=== PATIENT | female | born 1980 | race Caucasian/White ===

== ENCOUNTER 2022-09-03 10:05 | Emergency (ER) | payer OTHER, SELFPAY ==
[2022-09-03 10:30] VITALS: BP 113/65; PULSE 56; RESP 16; TEMP 36.3; O2SAT 100
--- NOTE | 2022-09-03 10:30 | ED.GENADULT ---
HPI - General Adult General Chief complaint: Chest Pain Stated complaint: sob,rt shoulder and upper back pain Time Seen by Provider: 09/03/22 10:30 Source: patient, RN notes reviewed and old records reviewed Mode of arrival: ambulatory Limitations: no limitations History of Present Illness HPI narrative: 42-year-old female presents to the [facility] with complaints of shortness of breath, right shoulder pain/ back pain that radiates into her right chest area reports that she is 33 weeks , OB Rhoda history of pericarditis and reports that it feels just like when she had pericarditis 5 years ago wrist pain, shortness of breath has been going on since Wednesday. Called OB and rheumatology and has an appointment with rheumatology on Wednesday states the shortness breath has been getting worse, no distress on exam. Vitals are stable Onset (ago): day(s) (6) Review of Systems Review of Systems: All systems reviewed & are unremarkable except as noted in HPI and below Constitutional: Constitutional: Reports no additional constitutional complaints Eyes: Eyes: Reports no additional eye complaints ENT: Reports system reviewed and no additional complaints, except as documented Cardiovascular: Cardiovascular: Reports as per HPI, Reports chest pain ( right upper back radiating into the right chest) and Denies dyspnea Respiratory: Respiratory: Reports as per HPI, Denies chest congestion, Denies cough, Reports pain on inspiration and Reports dyspnea Gastrointestinal: Gastrointestinal: Reports no additional gastrointestinal complaints, Denies abdominal pain, Denies nausea and Denies vomiting Musculoskeletal: Musculoskeletal: Reports no additional musculoskeletal complaints Integumentary/Breasts: Skin/Breast: Reports system reviewed and no additional complaints, except as docu Neurologic: Reports system reviewed and no additional complaints, except as documented Psychiatric: Psychiatric: Reports no additional psychiatric complaints Allergic/Immunologic: Allergic/Immunologic: Reports no additional allergic/immunologic complaints PMFSH Past Medical History Medical History (Updated 09/03/22 @ 10:51 by Sue Joseph APRN) Pericarditis history of 2018 Comments At the time of my signature, I reviewed and agree with the nursing past medical, surgical, social, and family history. There is no relevant family history pertinent to the patient complaint. Exam Const: General: cooperative, healthy appearing, comfortable, no acute distress, well developed, alert and well nourished Nutritional Appearance: well nourished Orientation/consciousness: patient oriented x3 Limitations: no limitations HENMT: Head: normal to inspection Ears: hearing grossly normal bilaterally and external ears normal Face/Nose/Sinus: Normal external nose present, Normal nares present, Normal nasal mucous membranes and turbinates present and normal facial exam Face and sinus: normal facial exam Mouth: Yes Normal oral and palatal mucosa present, Yes lip normal and Yes moist mucous membranes Eyes: General: appearance normal, both eyes and all related structures Alignment and Position: alignment normal Periorbital: periorbital findings normal Conjunctivae: conjunctivae normal Pupils: Equal, round and reactive pupils present EOM: EOMs intact bilaterally Neck: Neck: normal visual inspection, full ROM, no lymphadenopathy and no meningeal signs Chest: Chest palpation & inspection: normal inspection of the chest Resp: Effort & Inspection: normal respiratory effort and able to speak in complete sentences Auscultation: clear to auscultation bilaterally, no crackles, no rales, no rhonchi and no wheezes Cardio: Rate: regular rate Rhythm: regular rhythm Back/Spine/Pelvis: Cervical Spine: cervical ROM normal Thoracic/Lumbar Spine: No thoracic spinal tenderness Skin: General skin exam: normal color and no rashes or lesions noted Lesions: no lesions Rashes: no ra
== END 2022-09-03 10:46 | disposition short-term general hospital (02) ==
PROVIDERS: Emergency Provider Nurse Practitioner; PCP Internal Medicine
DX: O99.891 Other specified diseases and conditions complicating pregnancy (principal); Z3A.33 33 weeks gestation of pregnancy; R06.00 Dyspnea, unspecified; M54.6 Pain in thoracic spine
CPT/HCPCS: 99212; G0463

== ENCOUNTER 2022-09-03 11:01 | Emergency (ER) | payer OTHER, SELFPAY ==
--- NOTE | 2022-09-03 11:04 | ECG_ITS ---
Measurements Intervals [place] Rate: 57 P: 32 WV: 147 QRS: -11 QRSD: 86 T: 22 QT: 412 QTc: 404 Interpretive Statements SINUS BRADYCARDIA LOW QRS VOLTAGE IN PRECORDIAL LEADS [QRS DEFLECTION < 1.0 mV IN CHEST LEADS] POSSIBLE RIGHT VENTRICULAR CONDUCTION DELAY [RSR (QR) IN V1/V2] MINIMAL VOLTAGE CRITERIA FOR LVH, CONSIDER NORMAL VARIANT [MEETS CRITERIA IN ONE OF: R(aVL), S(V1), R(V5), R(V5/V6)+S(V1)] NO PREVIOUS ECG AVAILABLE FOR COMPARISON Electronically Signed On 09-03-2022 14:20:52 CDT by Ciara Can M.D.
[2022-09-03 11:08] VITALS: BP 123/67; PULSE 65; RESP 17; TEMP 36.4; O2SAT 100
[2022-09-03 11:24] LABS: Basophils Percent Auto 0.3 % (0.2-1.2); Eosinophils Percent Auto 0.6 % (0-4.4); Hematocrit 35.2 % (37.0-47.0); Hemoglobin 11.5 g/dL (12.0-15.0); Immature Granulocyte Absolute 0.03 K/mm3 (0.00-0.031); Immature Granulocyte Percent A 0.4 % (0-0.5); Lymphocytes Absolute Auto 1.13 K/mm3 (0.9-3.2); Lymphocytes Percent Auto 15.5 % (18.3-44.2); Mean Corpuscular HGB Conc 32.7 g/dl (32-36); Mean Corpuscular Hemoglobin 28.3 pg (26-34); Mean Corpuscular Volume 86.7 fl (80-100); Mean Platelet Volume 10.6 fl (7.4-10.4); Monocytes Absolute Auto 0.3 K/mm3 (0.1-0.6); Monocytes Percent Auto 3.7 % (2.6-8.5); Neutrophils Absolute Auto 5.8 K/mm3 (1.3-6.7); Neutrophils Percent Auto 79.5 % (45.5-73.1); Platelet Count Result 193 k/mm3 (150-375); Red Blood Count 4.06 M/mm3 (4.2-5.4); Red Cell Distribution Width 15.5 % (11.5-14.5); White Blood Count 7.3 K/mm3 (4.5-10.0)
[2022-09-03 11:35] LABS: Alanine Aminotransferase 13 U/L (6-35); Albumin Level 3.7 g/dL (3.5-5.1); Alkaline Phosphatase 147 U/L (38-126); Anion Gap 8 mmol/L (8-16); Aspartate Amino Transferase 18 U/L (14-36); Bilirubin,Total 0.6 mg/dL (0.2-1.3); Blood Urea Nitrogen 6 mg/dL (7-17); Calcium 8.5 mg/dL (8.4-10.2); Carbon Dioxide 23 mmol/L (22-30); Chloride 104 mmol/L (98-107); Estimated CRCL calculation 131 ml/min; Estimated Glomerular Filt Rate > 60; Glucose 85 mg/dL (65-110); Lipase 33 U/L (23-300); Potassium 3.8 mmol/L (3.4-5.0); Sodium 135 mmol/L (137-145)
[2022-09-03 11:42] LABS: INR 1.1; Partial Thromboplastin Time 25.7 SECONDS (22.3-36.8); Prothrombin Time 13.4 Seconds (11.1-14.7)
[2022-09-03 11:46] LABS: Troponin I < 0.012 ng/mL (0.000-0.034)
[2022-09-03 14:55] LABS: Troponin I < 0.012 ng/mL (0.000-0.034)
[2022-09-03 16:43] VITALS: BP 121/73; PULSE 60; RESP 18; O2SAT 100
--- NOTE | 2022-09-03 17:00 | ED.CHESTPAIN ---
HPI - Chest Pain General Chief Complaint: Chest Pain Stated Complaint: chest pain, 33wk Time Seen by Provider: 09/03/22 16:19 History of Present Illness HPI narrative: This is a 42-year-old female, 33 weeks , with past medical history of pericarditis, previously managed by rheumatology at [facility], who presents emergency department complaining of sharp-like chest pain for the past 5 days. It is rated 5/10, worse with lying flat or deep breathing beginning in the back and radiating forward. She states this is very similar to her previous pericarditis symptoms with her last flare 5 years ago. She states she is not currently taking medications for this. Related Data Allergies Allergy/AdvReac Type Severity Reaction Status Date / Time azithromycin AdvReac Nausea and Verified 09/03/22 17:13 [From Zithromax Z-Jose Eduardo] Vomiting Review of Systems Review of Systems: CONSTITUTIONAL: Denies fever, chills, or sweats. CARDIOVASCULAR: Sharp chest pain denies palpitations, or edema. RESPIRATORY: Denies cough or dyspnea. GASTROINTESTINAL: Denies abdominal pain, nausea, vomiting, or diarrhea. GENITOURINARY: Denies dysuria or hematuria. SKIN: Denies rash or itching. MUSCULOSKELETAL: Denies back pain, joint pain, or myalgia. NEUROLOGIC: Denies headache, numbness, dizziness, or weakness. PSYCHIATRIC: Denies anxiety or depression. PMFSH Past Medical History Medical History Pericarditis history of 2018 Exam Narrative: GENERAL: Well-appearing, well-nourished, and in no acute distress. HEAD: Normocephalic, atraumatic. EYES: PERRLA and EOMI. ENT: Nares clear, no rhinorrhea or epistaxis. Mucous membranes moist. Oropharynx without tonsillar hypertrophy exudate or other lesions. NECK: Supple. No adenopathy or masses. No carotid bruits or JVD CHEST: Clear to auscultation. No respiratory distress. No wheezes rales or rhonchi HEART: Regular rate and rhythm. Pericardial friction rub, no murmurs or gallops. Normal peripheral pulses. ABDOMEN: Soft, gravid uterus, nontender, nondistended, normal active bowel sounds. EXTREMITIES: Normal range of motion. No edema. SKIN: Warm, dry, no rash. NEURO: No focal deficits. Alert and oriented x3. PSYCH: Normal mood and affect. Course Course Emergency Course: 16:50 - Bedside pericardial long axis view performed by me is not concerning for pericardial fluid or tamponade. Bedside ultrasound of the uterus demonstrates a glover intrauterine with heart rate approximately 130. 17:35 - ESR elevated to 70. Troponins negative x3. EKG not concerning for STEMI. CBC demonstrates mild anemia with Hgb of 11.5 (baseline unknown) but is otherwise normal. Chemistries demonstrate mild hyponatremia at 135 but is otherwise normal. On reevaluation, the patient states her pain has minimally improved. 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 Will discharge with Tylenol. Discussed return and emergency precautions including signs/symptoms of ACS and respiratory distress. The patient voiced understanding and is comfortable with the plan. All questions answered to her satisfaction. Vital Signs Vital signs: Vital Signs Temperature 97.6 F 09/03/22 11:08 Pulse Rate 65 09/03/22 11:08 Respiratory Rate 17 09/03/22 11:08 Blood Pressure 123/67 09/03/22 11:08 Pulse Oximetry 100 09/03/22 11:08 Oxygen Delivery Room Air 09/03/22 11:08 Temperature 97.6 F 09/03/22 11:08 Pulse Rate 62 09/03/22 18:17 Respiratory Rate 20 09/03/22 18:17 Blood Pressure 114/71 09/03/22 18:17 Pulse Oximetry 100 09/03/22 18:17 Oxygen Delivery Room Air 09/03/22 11:08 MDM - Chest Pain MDM Narrative Medical decision making narrative: Plan: Labs, EKG, pain control, bedside ultrasound, reassess Differential Diagnosis Differential diagnosis: Likely costochondritis, chest
[2022-09-03 17:14] VITALS: PULSE 56
[2022-09-03] MEDS: ACETAMINOPHEN 500 MG TABLET 1000 MG PO (17:14)
[2022-09-03 17:27] LABS: Erythrocyte Sedimentation Rate 70 mm/hr (0-20)
[2022-09-03 17:40] LABS: Troponin I < 0.012 ng/mL (0.000-0.034)
[2022-09-03 18:17] VITALS: BP 114/71; PULSE 62; RESP 20; O2SAT 100
== END 2022-09-03 18:18 | disposition home or self-care (01) ==
PROVIDERS: Emergency Medicine; Emergency Provider Preventive Medicine Aerospace Medicine; PCP Internal Medicine
DX: O99.891 Other specified diseases and conditions complicating pregnancy (principal); R07.9 Chest pain, unspecified; I31.9 Disease of pericardium, unspecified; Z3A.33 33 weeks gestation of pregnancy
CPT/HCPCS: 36415; 80053; 83690; 84484; 85025; 85610; 85652; 85730; 93005; 99284; A9270

== ENCOUNTER 2022-10-02 06:58 | Outpatient (CLI) | payer OTHER, SELFPAY ==
[2022-10-02] VITALS (14 sets, daily range): BP systolic 129–138; BP diastolic 77–89; PULSE 44–78; O2SAT 84–100
[2022-10-02] MEDS: TERBUTALINE SULFATE 1 MG/ML VIAL 0.25 MG SUB-Q (08:50)
--- NOTE | 2022-10-02 09:16 | WPDOBADMIT ---
Obstetrics - Admit Note Admission Note: record reviewed. Additions to the history and/or subsequent changes in the physical findings follow. 42 y/o G1 at 37 weeks with breech presentation here for ECV. AVSS NST reactive TOCO: no contractions ABD soft, nontender, gravid EXT nontender Ultrasound exam performed by me showed glover IUP in cecilia breech presentation with back along maternal right. Fundal placenta. Adequate AFV. Procedure: Informed consent was obtained. She received terbutaline 0.25 mg SC x 1. ECV was attempted under ultrasound guidance. I attempted to elevate the breech out of the maternal pelvis and effect a forward (clockwise) somersault. This was not successful, so we tried a reverse somersault. Again, this was unsuccessful. Two more attempts were made, taking care to ensure the FHR was normal throughout. External cephalic version was not successful. The patient tolerated the procedure well. NST was continued after procedure and was Category I. We reviewed instructions and precautions, and she will follow up next week in the office as scheduled. (MELISSA Rh pos.)
== END 2022-10-02 09:45 | disposition home or self-care (01) ==
LOC: ANHOBOP 07:03 → ANHOBPP 07:06
PROVIDERS: PCP Internal Medicine; Visit Provider Obstetrics & Gynecology
DX: O32.1XX0 Maternal care for breech presentation, not applicable or unspecified (principal); Z3A.00 Weeks of gestation of pregnancy not specified
CPT/HCPCS: 59412; 96372; 99199; J3105

== ENCOUNTER 2022-10-13 07:34 | Outpatient (CLI) | payer OTHER, SELFPAY ==
[2022-10-13 08:29] LABS: Hematocrit 38.1 % (37.0-47.0); Hemoglobin 12.5 g/dL (12.0-15.0); Mean Corpuscular HGB Conc 32.8 g/dl (32-36); Mean Corpuscular Hemoglobin 28.2 pg (26-34); Mean Platelet Volume 11.8 fl (7.4-10.4); Platelet Count Result 234 k/mm3 (150-375); Red Blood Count 4.43 M/mm3 (4.2-5.4); Red Cell Distribution Width 15.6 % (11.5-14.5); White Blood Count 5.5 K/mm3 (4.5-10.0)
[2022-10-13 12:12] LABS: Rapid Plasma Reagin Non-Reactive (NonReactive)
== END 2022-10-13 07:35 | disposition home or self-care (01) ==
LOC: ANHLAB 07:35
PROVIDERS: PCP Internal Medicine; Visit Provider Obstetrics & Gynecology
DX: Z34.93 Encounter for supervision of normal pregnancy, unspecified, third trimester (principal); Z3A.00 Weeks of gestation of pregnancy not specified
CPT/HCPCS: 36415; 85027; 86592; 86850; 86900; 86901

== ENCOUNTER 2022-10-14 09:45 | Inpatient (IN) | payer OTHER, SELFPAY ==
[2022-10-14] VITALS (46 sets, daily range): BP systolic 119–157; BP diastolic 62–136; PULSE 58–190; RESP 11–18; TEMP 35.9–36.8; O2SAT 100; BMI 33.7
--- NOTE | 2022-10-14 10:24 | LDADM ---
This patient, Richelle Hayes, was admitted to OB Post [facility] on 10/14/22 at 09:45. Plans for section , pain management and were discussed with patient. Patient/family oriented to hospital policies and general routines including ID bracelet, bed and alarms, visiting hours, pain management, procedures, bathroom and other care routines, personal items, smoking policy, room service/diet and guest tray routines, infant security routines, and visiting hours. Patient/Family are encouraged to report perceived risks to care and to ask questions if they do not understand what they are told or what they should do. See OBIX for further documentation.
[2022-10-14] MEDS: LACTATED RINGERS 1,000 ML 125 ML IV CONT ×2 (11:28→12:15)
--- NOTE | 2022-10-14 11:40 | WPDANESEPPF ---
Anes - Initial Pre Proc Eval Procedure: Operation Date: 10/14/22 12:00 Proposed Procedures p Primary Section - Marco A Molina MD Date/Time: 10/14/22 11:40 Surgeon: Marco A Molina MD Pre Op Diagnosis: c/s Patient Data Age: 42 Gender: F Height: 1.63 m Weight: 89 kg Last Vital Signs Pulse 61 10/14/22 11:16 BP 148/91 H 10/14/22 11:16 O2 Del Method Room Air 10/14/22 10:21 Allergies Allergy/AdvReac Type Severity Reaction Status Date / Time azithromycin AdvReac Diarrhea Verified 09/19/22 14:31 [From Zithromax Z-Jose Eduardo] Home Medications Medication Instructions Recorded Confirmed Type famotidine 20 mg tablet (Pepcid) 20 mg PO DAILY 10/02/22 10/14/22 History fluoxetine 40 mg capsule 40 mg PO DAILY 10/02/22 10/14/22 History prenat.vits,edwin,[id number] 1 tablet PO DAILY 10/02/22 10/14/22 History Patient hx anesthesia problems: none Family hx anesthesia problems: none Results Review: All pre-operative results and documents have been reviewed as part of the pre-operative evaluation. [facility] Past Medical History Medical History Pericarditis history of 2018 Family History Family History (Updated 09/19/22 @ 14:34 by Indio Smalls RN) Mother Progressive supranuclear palsy Hypertension Pre-diabetes Father Hypertension Sibling Cerebral palsy Grandparent Diabetes mellitus Social History Social History Smoking status: Former smoker Smoking end date: 05/31/09 Substance use: never Lack of Transportation: No Lack of Food: Never True Current Housing: I Have Housing Concerned About Future Housing: No Difficulty Paying Gas/Electric Bills: No Difficulty Paying for Meds: No Currently Unemployed: No Education: Master's Degree or Higher Difficulty w/ Childcare or Family Care: No Spiritual care concerns: No Anes - Eval Final PreProcedure Day of Procedure 10/14/22 11:40 Patient weight: obese Heart: regular rate and rhythm Lungs: clear to auscultation and normal air movement Airway: Mallampati scale class II Neurological: alert and oriented Last oral intake: >/= 8 hours ASA classification: II Emergent: no Anesthetic plan: proceed Anesthesia type and monitoring: regional spinal Results Review: All pre-operative results and documents have been reviewed as part of the pre-operative evaluation. Informed Consent: The patient's anesthetic plan and its attendant risks and benefits were discussed with the patient/family/POA. Questions were solicited and answers provided to the satisfaction of the patient/family/POA.
--- NOTE | 2022-10-14 11:52 | PM.IMHP ---
H&P: HPI History of Present Illness Date/Time: 10/14/22 11:52 Chief Complaint: Here for c section Narrative: 42 y/o G1 at 39 2/7 weeks with breech presentation here for primary . GBS neg. otherwise unremarkable. Review of Systems Review of Systems: All systems reviewed & are unremarkable except as noted in HPI and below PMFSH Past Medical History Medical History Anxiety Pericarditis history of 2018 Family History Family History Mother Progressive supranuclear palsy Hypertension Pre-diabetes Father Hypertension Sibling Cerebral palsy Grandparent Diabetes mellitus Social History Social History Smoking status: Former smoker Smoking end date: 05/31/09 Substance use: never Lack of Transportation: No Lack of Food: Never True Current Housing: I Have Housing Concerned About Future Housing: No Difficulty Paying Gas/Electric Bills: No Difficulty Paying for Meds: No Currently Unemployed: No Education: Master's Degree or Higher Difficulty w/ Childcare or Family Care: No Spiritual care concerns: No Meds Home Medications and Allergies Home Medications Medication Instructions Recorded Confirmed Type famotidine 20 mg tablet (Pepcid) 20 mg PO DAILY 10/02/22 10/14/22 History fluoxetine 40 mg capsule 40 mg PO DAILY 10/02/22 10/14/22 History prenat.vits,edwin,[id number] 1 tablet PO DAILY 10/02/22 10/14/22 History Allergies Allergy/AdvReac Type Severity Reaction Status Date / Time azithromycin AdvReac Diarrhea Verified 09/19/22 14:31 [From Zithromax Z-Jose Eduardo] Vital Signs Vital Signs - 24 hr 10/14/22 10:19 10/14/22 10:31 10/14/22 10:46 Pulse Rate 67 62 65 Blood Pressure 128/91 H 139/88 140/83 Oxygen Delivery 10/14/22 11:00 10/14/22 11:16 10/14/22 10:21 Pulse Rate 66 61 Blood Pressure 143/88 H 148/91 H Oxygen Delivery Room Air 10/14/22 10:20 Pulse Rate 67 Blood Pressure 128/91 H Oxygen Delivery Exam Const: Orientation/consciousness: patient oriented x3 Other: Well-developed, well-nourished female in no acute distress. Neck: Thyroid: thyroid normal Lymphatic: no lymphadenopathy noted (in neck, axilla or inguinal nodes) Resp: Effort & Inspection: normal respiratory effort Auscultation: clear to auscultation bilaterally Cardio: Rate: regular rate Rhythm: regular rhythm Heart sounds: S1 normal heart sound present and S2 normal heart sound present GI: Other: ABD: Soft, nontender, nondistended, gravid. NST reactive. TOCO: no contractions. No guarding or rebound tenderness. No hepatosplenomegaly. Bedsides ultrasound exam by me today confirms persistent breech presentation. : General: Yes no CVA tenderness Other: Deferred. Back/Spine/Pelvis: Back: no CVA tenderness Skin: General skin exam: normal color and no rashes or lesions noted Neuro: General: patient oriented x3 Extrem: Other: Extremities: nontender with no edema Psych: Mental Status: mental status grossly normal Affect: normal affect Assessment and Plan Assessment and plan (1) Term : Code(s): Z34.90 - Encounter for supervision of normal , unspecified, unspecified trimester Status: Acute Assessment and Plan: A: IUP at 39 2/7 weeks with persistent breech presentation. P: Offered primary low transverse delivery. She understands risks of surgery to include risks of anesthesia, risks of pain, infection, bleeding, blood products, thromboembolic phenomena and damage to adjacent structures such as bowel, bladder, ureters, blood vessels and nerves. She understands all these risks and elects to proceed with surgery. (2) Breech presentation: Code(s): O32.1XX0 - Maternal care for breech presentation, not applicabl
--- NOTE | 2022-10-14 11:57 | WPDHPUPDATE1 ---
History and Physical Update Update Date/Time: 10/14/22 11:57 History and Physical has been reviewed, including an updated exam of the patient. There are NO changes in the patient's condition. Risks, benefits, and alternatives have been discussed and questions answered. Patient agrees to proceed with procedure.
[2022-10-14] MEDS: ceFAZolin 2 GM/D5W 50 ML 2 GM/50 ML BAG IVPB (12:18)
--- NOTE | 2022-10-14 13:09 | PM.OBPRVD ---
OB - Delivery Note Procedure Delivery date: 10/14/22 Procedure: Procedures Operation Date: 10/14/22 12:00 <No data on this case meets the specified criteria> Primary low transverse delivery Events: Breech Presentation Delivery monitor: External FHT and External Uterine Route of delivery: Specimen: Yes (cord blood) Quantitative Blood Loss (ml): 275 Anesthesia type: Spinal Disposition: PACU Complications: None Narrative: The patient was taken to the operating room where she was prepared and draped in the usual sterile fashion in dorsal supine position with a leftward tilt. She received cefazolin preoperatively. Spinal anesthesia was found to be adequate. A Pfannenstiel skin incision was made and carried through to the underlying layer of the fascia. The fascia was incised in the midline and the incision was extended laterally. The fascia was dissected free of the underlying rectus muscles. The rectus muscles were in the midline. The peritoneum was identified, tented up and entered sharply. The peritoneal incision was extended superiorly and inferiorly with good visualization of the bladder. The bladder blade was placed. The vesicouterine peritoneum was identified, tented up and entered sharply. The incision was extended laterally and the bladder flap was developed. The bladder blade was replaced. The uterus was then incised sharply in a transverse fashion along the lower uterine segment. The incision was extended laterally. The 's breech was delivered to the level of the scapulae. The arms were swept across the chest and delivered. The head was gently flexed and easily delivered. The loose nuchal cord was reduced. The nose and mouth were bulb suctioned. After a delay, the cord was clamped and cut. The infant was handed off the field. Cord blood was collected. The placenta was removed manually and was passed off the field. The uterus was exteriorized and cleared of all clots and debris. The uterine incision was reapproximated using 0 Monocryl in a running, locked fashion. Excellent hemostasis resulted as did excellent reapproximation of the normal anatomy. The uterus was returned the abdomen. The pelvis was irrigated copiously with warmed normal saline. Rigorous hemostasis was assured. The fascial layer was reapproximated using 0 Vicryl in a running fashion. The skin was closed with a running, subcuticular stitch of 4 0 Vicryl. Dermaflex was applied externally. Sponge, lap, needle and instrument counts were correct. The patient was taken to the recovery room in stable condition. The went to the nursery in stable condition. I was present and scrubbed the entire procedure. Baby Date of : 10/14/22 Time of : 12:44 Weeks of gestation at delivery: 39 gender: Female Weight (pounds): 6 Weight (ounces): 3 presentation: cecilia breech Placenta delivery description: Manual Removal and Normal Configuration Cord Vessel Description: 3 Vessels and Nuchal Cord score one minute: 8 score five minutes: 9
--- NOTE | 2022-10-14 13:13 | PM.OBDSVD ---
DS: Admitting Diagnosis Discharge Date 10/17/22 Admitting Diagnosis IUP at 39 2/7 weeks Breech presentation DS: Discharge Diagnosis Discharge Diagnosis (1) delivery delivered: Code(s): O82 - Encounter for delivery without indication Status: Acute OB - DS: Summary OB Procedures : NST and Ultrasound OB Procedures Intrapartum: OB Procedures: : None Peripartum Data Procedures: Procedures Operation Date: 10/14/22 12:00 <No data on this case meets the specified criteria> Time Spent with Patient Time attestation: Total time spent providing and/or coordinating discharge services: Discharge Plan Discharge Attending physician on discharge: Marco A Molina Discharging Clinician: Marco A Molina Patient Disposition: Home, Self-Care Activity: may shower, may drive after 2 weeks and pelvic rest Diet: regular Wound Care Instructions: incision open to air Discharge Instructions: Call or return if temperature above 100.4? F, increased abdominal pain, increased vaginal bleeding or any new problems. Stand Alone Forms: General Discharge Information Follow-up/Referrals: Marco A Molina MD [Physician] - 4 Weeks Discharge Medications: New ibuprofen 600 mg tablet 600 mg PO Q6H PRN (Reason: cramps) Qty: 30 0RF hydrocodone-acetaminophen 5-325 mg tablet 1 - 2 tablet PO Q6H PRN (Reason: pain) Qty: 30 0RF ferrous sulfate 325 mg (65 mg iron) tablet 325 mg PO DAILY Qty: 30 0RF Continued fluoxetine 40 mg capsule 40 mg PO DAILY famotidine [Pepcid] 20 mg Tablet 20 mg PO DAILY Vitamin Tablet 1 tablet PO DAILY Date of admission: 10/14/22 09:45 Primary Care Provider: AlexMike Admitting Provider: Marco A Molina Attending physician on admission: Marco A Molina Condition: Stable
--- NOTE | 2022-10-14 15:52 | OBPPTRN ---
Patient transferred to post room #281 via stretcher. Support person present. Oriented to unit, room, information board, rooming in, admission packet and security measures. Patient verbalizes understanding.
[2022-10-14] MEDS: DEXTROSE 5%/0.45% SOD CHL 1,000 ML 125 ML IV CONT (19:20)
[2022-10-15 04:00] VITALS: BP 123/75; PULSE 71; RESP 16; TEMP 36.6
[2022-10-15] MEDS: IBUPROFEN 600 MG TABLET PO ×3 (04:06→20:10)
[2022-10-15] MEDS: ACETAMINOPHEN 325 MG TABLET 650 MG PO ×3 (04:06→20:10)
[2022-10-15 05:09] LABS: Basophils Percent Auto 0.2 % (0.2-1.2); Hematocrit 29.3 % (37.0-47.0); Hemoglobin 9.9 g/dL (12.0-15.0); Immature Granulocyte Absolute 0.05 K/mm3 (0.00-0.031); Immature Granulocyte Percent A 0.5 % (0-0.5); Lymphocytes Absolute Auto 0.93 K/mm3 (0.9-3.2); Lymphocytes Percent Auto 9.6 % (18.3-44.2); Mean Corpuscular HGB Conc 33.8 g/dl (32-36); Mean Corpuscular Hemoglobin 28.4 pg (26-34); Mean Corpuscular Volume 84.2 fl (80-100); Mean Platelet Volume 11.8 fl (7.4-10.4); Monocytes Absolute Auto 0.4 K/mm3 (0.1-0.6); Monocytes Percent Auto 4.2 % (2.6-8.5); Neutrophils Absolute Auto 8.3 K/mm3 (1.3-6.7); Neutrophils Percent Auto 85.5 % (45.5-73.1); Platelet Count Result 209 k/mm3 (150-375); Red Blood Count 3.48 M/mm3 (4.2-5.4); Red Cell Distribution Width 15.3 % (11.5-14.5); White Blood Count 9.7 K/mm3 (4.5-10.0)
[2022-10-15 08:00] VITALS: BP 116/76; PULSE 72; RESP 18; TEMP 37.4; O2SAT 100
[2022-10-15] MEDS: MULTIVIT/MIN/PREN/FOL AC/IRON TABLET 1 TAB PO (08:03)
[2022-10-15] MEDS: FLUoxetine HCL 20 MG CAPSULE 40 MG PO (08:03)
[2022-10-15] MEDS: POLYSACCHARIDE IRON COMPLEX 150 MG CAPSULE PO ×2 (08:03→16:22)
[2022-10-15] MEDS: DOCUSATE SODIUM 100 MG CAPSULE PO ×2 (08:03→16:22)
--- NOTE | 2022-10-15 10:58 | WPDANLDNPN2 ---
Anes-Prog Note L&D-Neuraxial Date/Time: 10/15/22 10:58 Neuraxial medications: intrathecal PF morphine Opiod-related complaints: none Patient feedback: Patient satisfied with post-operative pain management.
--- NOTE | 2022-10-15 10:59 | P.PNAN_ITS ---
Anes - Prog Note Post-Op Date/Time: 10/15/22 10:59 Cardiovascular status: normal Respiratory status: normal Airway patency: baseline Mental status: baseline Post-Op hydration status: normal Vital Signs: Last Vital Signs Temp 37.4 C 10/15/22 08:00 Pulse 72 10/15/22 08:00 Resp 18 10/15/22 08:00 BP 116/76 10/15/22 08:00 Pulse Ox 100 10/15/22 08:00 O2 Del Method Room Air 10/15/22 08:00 Pain Score (VAS): 2. pt sleeping. I/O: Intake & Output 10/14/22 10/15/22 10/15/22 23:59 07:59 15:59 Intake Total 500 2000 Output Total 2200 200 Balance 500 -200 -200 Laboratory Tests 10/15/22 04:03 10/15/22 04:03 WBC 9.7 RBC 3.48 L Hgb 9.9 L Hct 29.3 L MCV 84.2 MCH 28.4 MCHC 33.8 RDW 15.3 H Plt Count 209 MPV 11.8 H Immature Gran % (Auto) 0.5 Neut % (Auto) 85.5 H Lymph % (Auto) 9.6 L [place] % (Auto) 4.2 Eos % (Auto) 0.0 Baso % (Auto) 0.2 Lymph # (Auto) 0.93 [place] # (Auto) 0.4 Eos # (Auto) 0.0 Baso # (Auto) 0.0 Abs Immat Gran (auto) 0.05 H Absolute Neuts (auto) 8.3 H Absolute Nucleated RBC 0.0 Nucleated RBC % 0.0 Post-procedural complaints: none Patient Feedback: Patient satisfied with anesthetic care.
--- NOTE | 2022-10-15 11:55 | PM.OBPNVD ---
OB - PN: Subj Subjective Date/time seen: 10/15/22 11:55 Narrative: Pain OK. Tolerating diet. OB - PN: Obj Data Labs 10/15/22 04:03 Labs: Laboratory Results - last 24 hr 10/15/22 04:03 WBC 9.7 RBC 3.48 L Hgb 9.9 L Hct 29.3 L MCV 84.2 MCH 28.4 MCHC 33.8 RDW 15.3 H Plt Count 209 MPV 11.8 H Immature Gran % (Auto) 0.5 Neut % (Auto) 85.5 H Lymph % (Auto) 9.6 L [place] % (Auto) 4.2 Eos % (Auto) 0.0 Baso % (Auto) 0.2 Lymph # (Auto) 0.93 [place] # (Auto) 0.4 Eos # (Auto) 0.0 Baso # (Auto) 0.0 Abs Immat Gran (auto) 0.05 H Absolute Neuts (auto) 8.3 H Absolute Nucleated RBC 0.0 Nucleated RBC % 0.0 OB - PN A/P Plan Comments: A: POD#1, doing well. P: Routine care. Exam Narrative: AVSS I/O OK ABD soft, nontender, fundus firm. Incision c/d/i. EXT nontender
--- NOTE | 2022-10-15 14:59 | PC.NURSE ---
[id number] Introductions were made, then consulted with patient to assess needs related to . Mother led the conversation with her?plans to feed?her infant and the?experience so far. Resources provided for inpatient and outpatient services with the feeding sheet, mom/baby guide and name written on the white board. Mother voiced understanding of information and plans to call for assistance. Mother works well with her with encouragement and education. Encouraged understanding of the benefits of skin to skin (demonstrating unwrapping and placing upright on her chest), stimulating with massage touch and changing positions to encourage wakefulness. Mother consents to continuing to practice hand expression to wake up and 1/2-3/4 tsp of colostrum was brought just to the edge of the lower lip, then infant lapped it up with the tongue. Reported to the Primary RN [id number] Consulted with patient to assess needs related to . Mother works well with her with encouragement. Reviewed working with infant, supporting breast and how to protect the nipples with an optimal deep latch, good positioning, and good hand washing. Encouraged understanding the benefits of skin to skin, responding to feeding cues, frequencies of feeding 8-12 times in 24 hours (approximately 2-3 hours), duration of feedings, milk production, hand expression,intake/output feeding sheet and signs of adequate intake encouraging swallowing at the breast. Reviewed positioning and alignment, supporting breast, off-centered (asymmetrical latch) and leading with the chin with big, open, wide gape. Infant opens wide, then sucks on the nipple which has the diameter between and nickel and a quarter and fills the infants mouth. An attempt was made to latch with a nipple shield. Nipple shield provided to mother due to ineffective . Reviewed good handwashing, cleaning the nipple shield and application. Discussed with mom the nipple shield precautions, possible complications associated with the risks and benefits. Reviewed practicing with a nipple shield, then without and how to protect the milk supply and production. Mom voiced understanding of the importance of hand expression, nipple stimulation and initiating a pumping schedule to protect the milk supply. did latch and maintain latch for a few more appropriated sucks a bit longer than without the nipple shield, however; doesn't maintain for a feeding. Breast pump provided due to ineffective . Instructions given on cleaning, care, usage, that there should be no pain, pumping schedule for milk production, collection, and storage of human milk. Parents are encouraged to record pumping schedule on the feeding sheet. Patient was assessed for correct placement, flange size, to pump for comfort and nipple stretching/stimulation for adequate milk production every 3 hours (8-12 times in 24 hours) 1-2 times at night.Parents were encouraged to feed colostrum that is collected with finger feeding, syringe, spoon, or cup and to call RN for assistance. Mother voiced understanding of the education shared, to call for assistance if the infant does not latch or if there is discomfort with . Reported to the primary RN.
[2022-10-15 18:25] VITALS: BP 121/74; PULSE 81; RESP 16; TEMP 36.4
[2022-10-16] MEDS: IBUPROFEN 600 MG TABLET PO ×2 (05:28→17:31)
[2022-10-16] MEDS: ACETAMINOPHEN 325 MG TABLET 650 MG PO ×2 (05:28→17:31)
[2022-10-16 08:50] VITALS: BP 139/76; PULSE 68; RESP 18; TEMP 36.9; O2SAT 100
--- NOTE | 2022-10-16 09:04 | PM.OBPNVD ---
OB - PN: Subj Subjective Date/time seen: 10/16/22 09:04 Narrative: Pain OK. Tolerating diet. OB - PN: Obj Data Labs 10/15/22 04:03 OB - PN A/P Plan Comments: A: POD#2, doing well. P: Routine care. Plan home tomorrow. Exam Narrative: AVSS I/O OK ABD soft, nontender, fundus firm. Incision c/d/i. EXT nontender
[2022-10-16] MEDS: DOCUSATE SODIUM 100 MG CAPSULE PO ×2 (10:31→17:31)
[2022-10-16] MEDS: POLYSACCHARIDE IRON COMPLEX 150 MG CAPSULE PO ×2 (10:31→17:31)
[2022-10-16] MEDS: FLUoxetine HCL 20 MG CAPSULE 40 MG PO (10:31)
[2022-10-16] MEDS: MULTIVIT/MIN/PREN/FOL AC/IRON TABLET 1 TAB PO (10:31)
[2022-10-16 20:20] VITALS: BP 121/72; PULSE 76; RESP 20; TEMP 36.3; O2SAT 98
[2022-10-17] MEDS: ACETAMINOPHEN 325 MG TABLET 650 MG PO (06:34)
[2022-10-17 06:35] VITALS: BP 135/88; PULSE 65; RESP 18; TEMP 36.2
[2022-10-17] MEDS: IBUPROFEN 600 MG TABLET PO (06:35)
--- NOTE | 2022-10-17 08:45 | PM.OBPNVD ---
OB - PN: Subj Subjective Date/time seen: 10/17/22 08:45 Narrative: Pain OK. Tolerating diet. Would like to go home. OB - PN: Obj Data Labs 10/15/22 04:03 OB - PN A/P Plan Comments: A: POD#3, doing well. P: Home to f/u 4 weeks. Exam Narrative: AVSS ABD soft, nontender, fundus firm. Incision c/d/i. Some ecchymosis above incision. Steri strips have been applied to a 5 mm superficial separation and it is well-approximated. EXT nontender
[2022-10-17] MEDS: FLUoxetine HCL 20 MG CAPSULE 40 MG PO (09:54)
[2022-10-17] MEDS: MULTIVIT/MIN/PREN/FOL AC/IRON TABLET 1 TAB PO (09:55)
[2022-10-17] MEDS: DOCUSATE SODIUM 100 MG CAPSULE PO (09:55)
[2022-10-17] MEDS: POLYSACCHARIDE IRON COMPLEX 150 MG CAPSULE PO (09:55)
[2022-10-19 09:17] VITALS: BP 137/88; PULSE 89; RESP 18; TEMP 37.6; O2SAT 100
== END 2022-10-17 11:45 | disposition home or self-care (01) | DRG 788 ==
LOC: ANHOBPP 13:15 → ANHLDR 15:05 → ANHOB2 15:57
PROVIDERS: Admitting Provider Obstetrics & Gynecology; PCP Internal Medicine; Visit Provider Obstetrics & Gynecology
PROC: 10D00Z1 Extraction of Products of Conception, Low, Open Approach (ICD-10-PCS; CPT 59514; principal; 2022-10-14 12:00)
DX: O32.1XX0 Maternal care for breech presentation, not applicable or unspecified (principal); O69.81X0 Labor and delivery complicated by cord around neck, without compression, not applicable or unspecified; Z3A.39 39 weeks gestation of pregnancy; Z37.0 Single live birth; Z87.891 Personal history of nicotine dependence
CPT/HCPCS: 36415; 85025; A9270; J0131; J0690; J1100; J2274; J2370; J2590; J7120